=== PATIENT | female | born 1970 | race Caucasian/White ===

== ENCOUNTER 2023-12-21 18:39 | Emergency (ER) | payer BC ==
[~2023-12-21] VITALS: Ht 157.5 cm; Wt 101.9 kg
[2023-12-21] MEDS: CEPHALEXIN 500 MG CAP PO ONE (20:29)
[2023-12-21] MEDS: POLYTRIM OPTH DROPS 10ML OU ONE (20:29)
[2023-12-21] MEDS ORDERED: POLY2.5S OU (20:40)
[2023-12-21] MEDS ORDERED: CEPH500C PO (20:40)
[2023-12-21 20:53] VITALS: BP 172/86; TEMP 98; O2SAT 96
== END 2023-12-21 21:05 | disposition home or self-care (01) ==
LOC: M ED 18:39
DX: S00.81XA Abrasion of other part of head, initial encounter (principal); H10.33 Unspecified acute conjunctivitis, bilateral; W19.XXXA Unspecified fall, initial encounter; K57.92 Diverticulitis of intestine, part unspecified, without perforation or abscess without bleeding; F17.200 Nicotine dependence, unspecified, uncomplicated; F10.10 Alcohol abuse, uncomplicated; Z79.2 Long term (current) use of antibiotics; Z79.899 Other long term (current) drug therapy; Y92.009 Unspecified place in unspecified non-institutional (private) residence as the place of occurrence of the external cause; Y93.89 Activity, other specified; Y99.9 Unspecified external cause status